=== PATIENT | female | born 1990 | race Caucasian/White ===

== ENCOUNTER 2016-11-15 16:27 | Emergency (ER) | payer SELFPAY ==
[~2016-11-15 16:27] MED LIST: COLACE100 MG PO; EXCEDRIN MIGRA1 EAC3; IBUPROFEN800 MG PO; OXYCODONE/APAP PO; TRAMADOL HCL50 MG PO
[2016-11-15] MEDS ORDERED: LAMICTAL100 M2 PO (17:32)
[2016-11-15] MEDS ORDERED: ZYPREXA20 M1 PO (17:32)
[2016-11-15] MEDS ORDERED: PENICILLIN V P500 M1 PO (17:59)
[2016-11-15] MEDS ORDERED: NORCO 5-325 TA1 EACH PO (17:59)
== END 2016-11-15 18:11 ==
LOC: EDMED 16:27
DX: K04.7 Periapical abscess without sinus (principal); F17.210 Nicotine dependence, cigarettes, uncomplicated